=== PATIENT | female | born 1970 | race Caucasian/White ===

== ENCOUNTER 2018-07-05 11:29 | Emergency (ER) | payer MEDICAID, OTHER ==
[~2018-07-05] VITALS: Ht 157.5 cm; Wt 92.6 kg
[~2018-07-05 11:29] MED LIST: AMLO10TA4 PO; ATEN50TA41 PO; ATOR20TA PO; AZIT1PAC; METF-162 PO; NIAC500C3 PO; TRAM7.5P2 PO
[2018-07-05 12:06] VITALS: BP 138/85
[2018-07-05] MEDS ORDERED: KETOROLAC 30 MG/1 ML ONE (13:17)
[2018-07-05] MEDS ORDERED: KETOROLAC 30 MG/1 ML IM ONE (13:30)
== END 2018-07-05 13:28 | disposition home or self-care (01) ==
LOC: ED 13:06
DX: S50.01XA Contusion of right elbow, initial encounter (principal); S80.01XA Contusion of right knee, initial encounter; I10 Essential (primary) hypertension; E11.9 Type 2 diabetes mellitus without complications; Z88.0 Allergy status to penicillin; W18.30XA Fall on same level, unspecified, initial encounter; Y93.89 Activity, other specified; Y92.69 Other specified industrial and construction area as the place of occurrence of the external cause; Y99.0 Civilian activity done for income or pay
CPT/HCPCS: 73060; 73080; 96372; 99283; J1885